=== PATIENT | female | born 1960 | race Caucasian/White ===

== ENCOUNTER 2016-08-07 11:51 | Emergency (ER) | payer OTHER ==
[~2016-08-07] VITALS: Ht 154.9 cm; Wt 79.8 kg
--- NOTE | ~2016-08-07 | EKG ---
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 08/08/16 0818 1151 115 Brandon Alva MD, FACC /EPI
[2016-08-07 12:35] LABS: ABSOLUTE NEUTROPHILS 5.8 thou/uL (1.4-8.2); BASOPHILS 0.3 % (0.0-2.0); EOSINOPHILS 1.8 % (0.0-3.0); HEMATOCRIT 43.9 % (37.0-47.0); HEMOGLOBIN 15.5 gm/dL (12.0-15.0); LYMPHOCYTES 28.9 % (24.0-44.0); MCH 28.2 pg (26.0-34.0); MCHC 35.2 g/dL (28.0-37.0); MONOCYTES 7.3 % (1.0-8.0); PLATELET COUNT 368 thou/uL (150-400); POLYS 61.7 % (36.0-66.0); RBC 5.49 mil/uL (4.20-5.00); RDW 15.2 % (10.5-14.5); WBC 9.4 thou/uL (4.0-11.0)
[2016-08-07 12:38] LABS: MANUAL DIFF NO
[2016-08-07 12:42] LABS: ANION GAP 9 mmol/L (7-16); BUN 6 mg/dL (7-18); CALCIUM 9.2 mg/dL (8.5-10.1); CHLORIDE 101 mmol/L (98-107); CO2 28 mmol/L (21-32); CREATININE 0.8 mg/dL (0.6-1.0); GLUCOSE 94 mg/dL (74-106); POTASSIUM 3.6 mmol/L (3.5-5.1); SODIUM 138 mmol/L (136-145)
[2016-08-07 12:51] LABS: ALBUMIN 3.7 g/dL (3.4-5.0); ALKALINE PHOSPHATASE 114 U/L (46-116); SGOT 18 U/L (15-37); SGPT 30 U/L (30-65); TOTAL BILIRUBIN 0.3 mg/dL (<0.1-1.0); TOTAL PROTEIN 7.5 g/dL (6.4-8.2); TROPONIN-I < 0.04 ng/mL (<0.04-0.07)
[2016-08-07] MEDS ORDERED: ATORVASTATIN CA80 MG PO (13:23)
[2016-08-07] MEDS ORDERED: PAROXETINE HCL20 MG PO (13:23)
[2016-08-07] MEDS ORDERED: ADVAIR 500-501 EACH INH (13:23)
[2016-08-07] MEDS ORDERED: SPIRIVA18 MCG INH (13:25)
[2016-08-07] MEDS ORDERED: VENTOLIN HFA 1818 GM INH (13:26)
[2016-08-07] MEDS ORDERED: ST. JOSEPH ASPI81 MG PO (13:26)
[2016-08-07] MEDS ORDERED: ALEVE PM CAPLE1 EACH PO (13:27)
[2016-08-07] MEDS ORDERED: ALEVE220 MG PO (13:27)
[2016-08-07] MEDS ORDERED: NORCO 5-325 TA1 EACH PO (14:23)
[2016-08-07 14:57] VITALS: BP 106/46
== END 2016-08-07 15:20 | disposition home or self-care (01) ==
LOC: ER 11:51
PROVIDERS: Physician Assistant
DX: R07.89 Other chest pain (principal); E11.9 Type 2 diabetes mellitus without complications; E66.9 Obesity, unspecified; Z82.49 Family history of ischemic heart disease and other diseases of the circulatory system; Z71.6 Tobacco abuse counseling; Z72.0 Tobacco use; Z79.82 Long term (current) use of aspirin; Z88.6 Allergy status to analgesic agent